=== PATIENT | female | born 1955 | race African-American/Black ===

== ENCOUNTER 2018-05-10 06:30 | Inpatient (IN) | payer OTHER ==
[2018-05-10] VITALS (40 sets, daily range): BP systolic 97–162; BP diastolic 48–115
[~2018-05-10] VITALS: Ht 157.5 cm; Wt 73.0 kg
[2018-05-10] MEDS ORDERED: ONDANSETRON HCL 4MG/2ML INJ IV STA (07:25)
[2018-05-10] MEDS ORDERED: FAMOTIDINE 20MG/2ML VIAL IV STA (07:25)
[2018-05-10] MEDS ORDERED: SODIUM CHLORIDE 0.9% 1,000 ML IV ONE (07:25)
[2018-05-10 07:52] LABS: BASOPHILS % 0.5 % (0.0-2.0); EOSINOPHILS % 0.6 % (0.0-5.0); HEMATOCRIT. 32.9 % (36.0-48.0); HEMOGLOBIN. 9.9 g/dL (12.0-16.0); LYMPHOCYTES % 18.2 % (20.0-50.0); MEAN CORPUSCULAR HEMOGLOBIN 21.3 pg (28.0-32.0); MEAN CORPUSCULAR VOLUME 70.7 fL (81.0-99.0); MEAN PLATELET VOLUME 9.5 fl (7.4-10.4); MONOCYTES % 9.5 % (2.0-8.0); NEUTROPHILS % 71.2 % (40.0-76.0); PLATELET 107 x1000/uL (130-400); RED BLOOD CELL COUNT 4.64 mill/uL (4.2-5.4); RED CELL DISTRIBUTION WIDTH 16.4 % (11.6-14.6)
[2018-05-10 07:55] LABS: CHLORIDE 98 mEq/L (98-107)
[2018-05-10 07:57] LABS: INR 1.3
[2018-05-10 08:11] LABS: BETA HYDROXYBUTYRATE 0.9 mMol/L (0.0-0.3)
[2018-05-10] MEDS ORDERED: MAGNESIUM 1 G PREMIX 100 ML IV ONE (08:15)
[2018-05-10] MEDS ORDERED: PIPERACILLIN/TAZ 3.375G PREMIX 50 ML IV ONE (09:30)
[2018-05-10] MEDS ORDERED: SODIUM CHLORIDE 0.9% 1000ML BAG (SEPSIS BOLUS) IV ONE (09:30)
[2018-05-10] MEDS ORDERED: LEVETIRACETAM 500MG PREMIX 100 ML IV ONE (10:15)
[2018-05-10 10:51] LABS: CLARITY URINE CLOUDY (CLEAR); COLOR URINE YELLOW (YELLOW); KETONES URINE 1+ (NEGATIVE); LEUKOCYTE ESTERASE URINE NEGATIVE (NEGATIVE); NITRITE URINE NEGATIVE (NEGATIVE); OCCULT BLOOD URINE 3+ (NEGATIVE); PH URINE 5.5 (4.5-8.0); PROTEIN URINE 2+ (NEGATIVE); SPECIFIC GRAVITY URINE 1.022 (1.005-1.030)
[2018-05-10] MEDS ORDERED: GADOBENATE DIMEGLUMINE 529 MG/ML 10ML IV ONE (11:47)
[2018-05-10] MEDS ORDERED: LISI-648 MT (14:58)
[2018-05-10] MEDS ORDERED: LIP40 MT (14:58)
[2018-05-10] MEDS ORDERED: METO-539 MT (14:58)
[2018-05-10] MEDS ORDERED: METF-414 MT (14:59)
[2018-05-10] MEDS ORDERED: DEXT 5%/LACTATED RINGERS 1,000 ML IV SCH (15:00)
[2018-05-10] MEDS ORDERED: NICARDIPINE 100 MG in SODIUM CHLORIDE 0.9% 60 ML IV PRN ×2 (15:30→16:00)
[2018-05-10] MEDS ORDERED: DEXTROSE 50% WATER 50ML SYRINGE IV PRN (16:30)
[2018-05-10] MEDS: BLOOD SUGAR DIAGNOSTIC STRIP TEST SCH ×2 (16:55→21:52)
[2018-05-10] MEDS ORDERED: LEVETIRACETAM 500MG PREMIX 100 ML IV SCH (17:00)
[2018-05-10] MEDS: INSULIN LISPRO 100 UNITS/ML SUBCUT SCH ×2 (17:00→21:00)
[2018-05-10] MEDS ORDERED: ACETAMINOPHEN 325MG TABLET PO PRN (17:00)
[2018-05-10] MEDS ORDERED: LORAZEPAM 2MG/ML CPJ IV PRN (17:00)
[2018-05-10] MEDS ORDERED: IPRATROPIUM/ALBUTEROL 0.5-3(2.5)MG/3ML NEB INH PRN (17:00)
[2018-05-10] MEDS ORDERED: ONDANSETRON HCL 4MG/2ML INJ IV PRN (17:00)
[2018-05-10] MEDS ORDERED: NA PHOS,M-B/NA PHOS,DI-BA ENEMA 118ML PR PRN (17:00)
[2018-05-10] MEDS ORDERED: MAGNESIUM 2 G PREMIX 50 ML IV NR (19:00)
[2018-05-10] MEDS ORDERED: MAGNESIUM 1 G PREMIX 100 ML IV NR (20:00)
[2018-05-10] MEDS: MORPHINE SULFATE 4 MG/ML CPJ (NOT FOR IM USE) IV PRN (21:05)
[2018-05-10] MEDS: LEVETIRACETAM 500MG in SODIUM CHLORIDE 0.9% 100ML IV SCH (21:55)
[2018-05-11] VITALS (65 sets, daily range): BP systolic 47–172; BP diastolic 35–85
[2018-05-11] MEDS: MORPHINE SULFATE 4 MG/ML CPJ (NOT FOR IM USE) IV PRN ×3 (04:08→17:34)
[2018-05-11] MEDS: INSULIN LISPRO 100 UNITS/ML SUBCUT SCH ×4 (07:00→21:00)
[2018-05-11] MEDS: BLOOD SUGAR DIAGNOSTIC STRIP TEST SCH ×4 (07:28→21:03)
[2018-05-11] MEDS: LEVETIRACETAM 500MG in SODIUM CHLORIDE 0.9% 100ML IV SCH ×2 (09:00→21:07)
[2018-05-11] MEDS ORDERED: IOHEXOL-350 100 ML BOTTLE ONE (20:53)
[2018-05-12] VITALS (34 sets, daily range): BP systolic 101–161; BP diastolic 60–111
[2018-05-12] MEDS: MORPHINE SULFATE 4 MG/ML CPJ (NOT FOR IM USE) IV PRN ×2 (02:25→17:08)
[2018-05-12] MEDS: BLOOD SUGAR DIAGNOSTIC STRIP TEST SCH ×3 (06:28→17:14)
[2018-05-12] MEDS: INSULIN LISPRO 100 UNITS/ML SUBCUT SCH ×3 (06:28→17:00)
[2018-05-12] MEDS: LEVETIRACETAM 500MG in SODIUM CHLORIDE 0.9% 100ML IV SCH (09:00)
== END 2018-05-12 17:45 | disposition short-term general hospital (02) | DRG 65 ==
LOC: ER 06:30 → MICUNO 10:09 → ENRESERV 13:29
PROVIDERS: ADMIT Internal Medicine; ATTEND Internal Medicine
DX: I60.9 Nontraumatic subarachnoid hemorrhage, unspecified (principal); C79.31 Secondary malignant neoplasm of brain; D64.9 Anemia, unspecified; E11.65 Type 2 diabetes mellitus with hyperglycemia; E83.42 Hypomagnesemia; E86.0 Dehydration; G40.909 Epilepsy, unspecified, not intractable, without status epilepticus; I10 Essential (primary) hypertension; N28.89 Other specified disorders of kidney and ureter; Z79.4 Long term (current) use of insulin; Z85.528 Personal history of other malignant neoplasm of kidney; Z88.6 Allergy status to analgesic agent
CPT/HCPCS: 36415; 70496; 70553; 71045; 74176; 82010; 82962; 83605; 83735; 83880; 84484; 93005; 96374; 99285; A9577; J1815; J1953; J2270; J2405; J2543; J3475; J3490; J7030; J7050; Q9967

== ENCOUNTER 2018-10-13 13:43 | Emergency (ER) | payer OTHER ==
[~2018-10-13] VITALS: Ht 167.6 cm; Wt 68.0 kg
[~2018-10-13 13:43] MED LIST: LIP40 MT; LISI-648 MT; METF-414 MT; METO-539 MT
[2018-10-13] MEDS ORDERED: ONDANSETRON HCL 4MG/2ML INJ IV STA (13:58)
[2018-10-13 15:22] LABS: CLARITY URINE CLEAR (CLEAR); COLOR URINE YELLOW (YELLOW); KETONES URINE NEGATIVE (NEGATIVE); LEUKOCYTE ESTERASE URINE NEGATIVE (NEGATIVE); NITRITE URINE NEGATIVE (NEGATIVE); OCCULT BLOOD URINE 2+ (NEGATIVE); PH URINE 6.5 (4.5-8.0); PROTEIN URINE 1+ (NEGATIVE); SPECIFIC GRAVITY URINE 1.018 (1.005-1.030)
[2018-10-13 15:28] LABS: BASOPHILS % 0.8 % (0.0-2.0); EOSINOPHILS % 0.4 % (0.0-5.0); HEMATOCRIT. 32.1 % (36.0-48.0); HEMOGLOBIN. 9.8 g/dL (12.0-16.0); LYMPHOCYTES % 16.3 % (20.0-50.0); MEAN CORPUSCULAR HEMOGLOBIN 23.2 pg (28.0-32.0); MEAN CORPUSCULAR VOLUME 76.1 fL (81.0-99.0); MEAN PLATELET VOLUME 8.5 fl (7.4-10.4); MONOCYTES % 9.4 % (2.0-8.0); NEUTROPHILS % 73.1 % (40.0-76.0); PLATELET 206 x1000/uL (130-400); RED BLOOD CELL COUNT 4.22 mill/uL (4.2-5.4); RED CELL DISTRIBUTION WIDTH 19.6 % (11.6-14.6)
[2018-10-13 15:31] LABS: *AMPHETAMINES SCREEN URINE NEGATIVE (NEGATIVE); *BARBITURATES SCREEN URINE NEGATIVE (NEGATIVE); *COCAINE SCREEN URINE NEGATIVE (NEGATIVE); CANNABINOID URINE SCREEN NEGATIVE (NEGATIVE); METHADONE URINE SCREEN NEGATIVE (NEGATIVE); OPIATES URINE SCREEN NEGATIVE (NEGATIVE); PHENCYCLIDINE URINE SCREEN NEGATIVE (NEGATIVE)
[2018-10-13 15:32] LABS: *BENZODIAZEPINES SCREEN URINE NEGATIVE (NEGATIVE)
[2018-10-13 15:34] LABS: CHLORIDE 104 mEq/L (98-107)
[2018-10-13 15:35] LABS: INR 1.2; PROTHROMBIN TIME 12.4 sec (9.6-11.0)
[2018-10-13 15:38] LABS: ETHANOL BLOOD < 10 mg/dL
[2018-10-13] MEDS ORDERED: ASPIRIN 81MG TABLET PO ONE (16:00)
[2018-10-13] MEDS ORDERED: MECLIZINE 25MG TABLET PO ONE (16:00)
[2018-10-13] MEDS ORDERED: SODIUM CHLORIDE 0.9% 1,000 ML IV ONE (16:00)
[2018-10-13] MEDS ORDERED: ENOXAPARIN 80MG/0.8ML SYR SUBCUT ONE (16:45)
[2018-10-13] MEDS ORDERED: METOCLOPRAMIDE HCL 10MG/2ML VIAL IV ONE (16:45)
[2018-10-13] MEDS ORDERED: CLOPIDOGREL 75MG TABLET PO ONE (17:15)
[2018-10-13 21:48] VITALS: BP 123/57
== END 2018-10-13 22:11 | disposition short-term general hospital (02) ==
LOC: ER 13:54
DX: I21.4 Non-ST elevation (NSTEMI) myocardial infarction (principal); G90.8 Other disorders of autonomic nervous system; E11.9 Type 2 diabetes mellitus without complications; I10 Essential (primary) hypertension; Z86.79 Personal history of other diseases of the circulatory system; Z88.6 Allergy status to analgesic agent; Z79.899 Other long term (current) drug therapy; Z79.84 Long term (current) use of oral hypoglycemic drugs
CPT/HCPCS: 36415; 70450; 71045; 80053; 80305; 80320; 81003; 82962; 84484; 85025; 85610; 93005; 96361; 96374; 96375; 99291; J1650; J2405; J2765; J7030; J8597; G0480